=== PATIENT | female | born 1985 | race Caucasian/White ===

== ENCOUNTER 2020-10-04 13:04 | Emergency (ER) | payer MEDICAID, SELFPAY ==
[2020-10-04] MEDS ORDERED: Ketorolac Tromethamine 60 MG/2 ML VIAL ONE (13:19)
== END 2020-10-04 14:56 | disposition home or self-care (01) ==
LOC: BURERS 13:04
DX: S29.011A Strain of muscle and tendon of front wall of thorax, initial encounter (principal); F17.210 Nicotine dependence, cigarettes, uncomplicated; X58.XXXA Exposure to other specified factors, initial encounter
CPT/HCPCS: 96372; 99406; J1885

== ENCOUNTER 2022-02-12 15:11 | Emergency (ER) | payer SELFPAY ==
[2022-02-12] MEDS ORDERED: Penicillin V Potassium 250 MG TAB ONE (15:48)
== END 2022-02-12 15:49 | disposition home or self-care (01) ==
LOC: BURERS 15:11
DX: K04.7 Periapical abscess without sinus (principal); F17.210 Nicotine dependence, cigarettes, uncomplicated
CPT/HCPCS: 99282

== ENCOUNTER 2022-04-19 10:03 | Emergency (ER) | payer SELFPAY | END 2022-04-19 11:07 | disposition home or self-care (01) | LOC: BURERS 10:03 | DX: U07.1 COVID-19 (principal); K43.9 Ventral hernia without obstruction or gangrene; F17.210 Nicotine dependence, cigarettes, uncomplicated | CPT/HCPCS: 99283 ==

== ENCOUNTER 2022-08-06 14:21 | Emergency (ER) | payer OTHER, SELFPAY ==
[~2022-08-06 14:21] MED LIST: Iopamidol 370 76% 100 ML VIAL ONE
[2022-08-06] MEDS ORDERED: Ketorolac Tromethamine 30 MG/ML VIAL ONE (14:46)
[2022-08-06 14:53] LABS: Hemoglobin 5.7 g/dL (12.0-16.0); Mean Corpuscular HGB CONC 25.7 g/dL (32.0-36.0); Mean Corpuscular Hemoglobin 14.1 pg (27.0-31.0); Mean Platelet Volume 5.7 fL (7.4-10.4); Platelet Count 514 10x3/uL (130-400); RBC Distribution Width 17.2 % (11.5-14.5); Red Blood Cell (RBC) Count 4.02 mill/uL (4.20-5.40); White Blood Cell (WBC) Count 3.7 10x3/uL (4.8-10.8)
[2022-08-06 14:54] LABS: #Eosinphils 0.1 thou/uL (0.0-0.7); #Lymphocytes 1.4 thou/uL (1.20-3.40); #Monocytes 0.3 thou/uL (0.11-0.59); #Neutrophils 1.9 thou/uL (1.40-6.50); %Basophils 1.2 % (0.0-1.0); %Eosinophils 2.1 % (0.0-10.0); %Lymphocytes 37.2 % (21.0-51.0); %Monocytes 8.2 % (0.0-10.0); %Neutrophils 51.3 % (42.0-75.0)
[2022-08-06 15:04] LABS: ALT (SGPT) 23 U/L (8-55); AST (SGOT) 25 U/L (5-34); Albumin 4.1 g/dL (3.5-5.0); Alkaline Phosphatase 126 U/L (40-110); Anion Gap 13 mmol/L (10-20); BUN (Urea Nitrogen) 14 mg/dL (7.0-18.7); Bilirubin, Total 0.4 mg/dL (0.2-1.2); CK (CPK) 97 U/L (29-168); Calc. Creatinine Clearance 0 mL/min (70-130); Carbon Dioxide 21 mmol/L (22-29); Chloride 109 mmol/L (98-107); Estimated GFR 95; Globulin 3.1 g/dL (2.4-3.5); Glucose 191 mg/dL (70-105); Lipase 75 U/L (8-78); Magnesium 2.3 mg/dL (1.6-2.6); Potassium 3.9 mmol/L (3.5-5.1); Protein, Total 7.2 g/dL (6.0-8.3); Sodium 139 mmol/L (136-145)
[2022-08-06 15:07] LABS: Hypochromia MODERATE=16-30 cells (100X) (0-5/hpf); MDiff Complete? YES; Microcytosis SLIGHT = 6-15 cells (100X) (0-5/hpf); Platelet Morphology Comment Appears Increased; Reflex for Review?? NO
[2022-08-06] MEDS ORDERED: Pantoprazole 40 MG VIAL ONE (15:21)
[2022-08-06 15:26] LABS: Prothrombin Time 13.2 sec (12.0-14.7)
[2022-08-06 17:51] LABS: Bilirubin Negative (Negative); Blood, Urine Negative (Negative); Clarity Clear (Clear); Glucose, Urine (Dipstick) Negative (Negative); Ketone, Urine Negative (Negative); Leukocyte Negative (Negative); Nitrite Negative (Negative); Protein, Urine (Dipstick) Negative (Neg-Trace)
== END 2022-08-06 19:17 | disposition short-term general hospital (02) ==
LOC: BURERS 14:21
DX: D64.9 Anemia, unspecified (principal); R19.00 Intra-abdominal and pelvic swelling, mass and lump, unspecified site; D72.819 Decreased white blood cell count, unspecified; F17.210 Nicotine dependence, cigarettes, uncomplicated
CPT/HCPCS: 36415; 74177; 80053; 81003; 82274; 82550; 82728; 83540; 83690; 83735; 85025; 85610; 86850; 86900; 86901; 96374; 96375; C9113; J1885; Q9967